=== PATIENT | female | born 1990 | race Caucasian/White ===

== ENCOUNTER 2017-09-27 21:04 | Emergency (ER) | payer SELFPAY, OTHER ==
[2017-09-27] MEDS ORDERED: diphenhydrAMINE 50 MG/ML VIAL ONE (21:58)
[2017-09-27] MEDS ORDERED: Acetaminophen 500 MG TAB ONE (21:58)
--- NOTE | 2017-09-27 22:41 | CT ---
CT OF THE BRAIN WITHOUT CONTRAST 09/27/17 INDICATION: Chronic headaches. COMPARISON: None. FINDINGS: No acute infarct, hemorrhage or hydrocephalus is present. The septum pellucidum and third ventricle are midline. Mastoid air cells and paranasal sinuses are clear. There is dehiscence versus remote fr acture involving the left medial orbital wall. IMPRESSION: 1. No acute intracranial abnormality. 2. 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 POS: [facility]
[2017-09-27] MEDS ORDERED: Lorazepam 2 MG/ML VIAL ONE (23:10)
== END 2017-09-28 01:15 | disposition home or self-care (01) ==
LOC: ERS 21:04
DX: R51 Headache (principal); G43.909 Migraine, unspecified, not intractable, without status migrainosus; F17.210 Nicotine dependence, cigarettes, uncomplicated
CPT/HCPCS: 62270; 70450; 82945; 84157; 87070; 87205; 89051; 96365; 96375; J1200; J2060

== ENCOUNTER 2018-05-08 23:33 | Emergency (ER) | payer SELFPAY ==
[2018-05-09 00:16] LABS: #Eosinphils 0.1 thou/uL (0.0-0.7); #Lymphocytes 2.3 thou/uL (1.20-3.40); #Monocytes 0.6 thou/uL (0.11-0.59); #Neutrophils 3.1 thou/uL (1.40-6.50); %Basophils 0.5 % (0.0-1.0); %Eosinophils 1.9 % (0.0-10.0); %Lymphocytes 37.3 % (21.0-51.0); %Monocytes 9.9 % (0.0-10.0); %Neutrophils 50.4 % (42.0-75.0); Hemoglobin 12.8 g/dL (12.0-16.0); Mean Corpuscular HGB CONC 34.3 g/dL (32.0-36.0); Mean Corpuscular Volume 81.8 fl (81.0-99.0); Mean Platelet Volume 7.7 fL (7.4-10.4); Platelet Count 183 thou/uL (130-400); RBC Distribution Width 13.6 % (11.5-14.5); Red Blood Cell (RBC) Count 4.58 mill/uL (4.20-5.40); White Blood Cell (WBC) Count 6.2 thou/uL (4.8-10.8)
[2018-05-09 00:33] LABS: ALT (SGPT) 12 U/L (8-55); AST (SGOT) 15 U/L (5-34); Albumin 3.9 g/dL (3.5-5.0); Alkaline Phosphatase 63 U/L (40-150); Anion Gap 11 mmol/L (10-20); BUN (Urea Nitrogen) 14 mg/dL (7.0-18.7); Bilirubin, Total 0.4 mg/dL (0.2-1.2); Calc. Creatinine Clearance 0 mL/min (70-130); Carbon Dioxide 23 mmol/L (22-29); Chloride 107 mmol/L (98-107); Estimated GFR-MDRD 90; Globulin 2.7 g/dL (2.4-3.5); Glucose 79 mg/dL (70-105); Potassium 3.7 mmol/L (3.5-5.1); Protein, Total 6.6 g/dL (6.0-8.3); Sodium 137 mmol/L (136-145)
[2018-05-09 02:28] LABS: Pregnancy Test - Urine (BHCG) Negative (Negative); Pregu Control Background? CLEAR/WHITE (CLR/WHITE); Pregu Control Bar Appear? YES (CONTROL BAR)
[2018-05-09 03:38] LABS: BHCG - Serum Negative (NEGATIVE); Pregs Control Background? CLEAR/WHITE (CLR/WHITE); Pregs Control Bar Appear? YES (CONTROL BAR)
== END 2018-05-09 03:01 | disposition home or self-care (01) ==
LOC: ERS 23:33
DX: R20.2 Paresthesia of skin (principal); G43.909 Migraine, unspecified, not intractable, without status migrainosus; F17.210 Nicotine dependence, cigarettes, uncomplicated
CPT/HCPCS: 36415; 36416; 80053; 81025; 84443; 84703; 85025; 96360

== ENCOUNTER 2018-06-10 11:45 | Emergency (ER) | payer SELFPAY | END 2018-06-10 12:25 | disposition left against medical advice (07) | LOC: ERS 11:45 | DX: Z53.21 Procedure and treatment not carried out due to patient leaving prior to being seen by health care provider (principal) ==

== ENCOUNTER 2018-08-08 09:20 | Emergency (ER) | payer SELFPAY ==
[2018-08-08] MEDS ORDERED: Sodium Chloride For Inhalation 0.9% 3 ML NEB ONE (09:47)
[2018-08-08] MEDS ORDERED: Dexamethasone 10 MG/ML VIAL ONE (10:12)
--- NOTE | 2018-08-08 10:14 | RAD ---
PA AND LATERAL VIEWS CHEST: HISTORY: Cough. FINDINGS: The cardiomediastinum is normal. The lungs are expanded and clear. The bony thorax is normal. IMPRESSION: Normal exam. POS: [facility]
== END 2018-08-08 10:33 | disposition home or self-care (01) ==
LOC: SCSER 09:20
DX: J06.9 Acute upper respiratory infection, unspecified (principal); E05.90 Thyrotoxicosis, unspecified without thyrotoxic crisis or storm; F17.210 Nicotine dependence, cigarettes, uncomplicated
CPT/HCPCS: 71046; 94640; J1100; J7620

== ENCOUNTER 2019-11-10 11:59 | Inpatient (IN) | payer SELFPAY ==
[~2019-11-10 11:59] MED LIST: Iopamidol-370 76% 500 ML 1 ML ONE
[2019-11-10 12:21] LABS: #Basophils 0.1 thou/uL (0.0-0.2); #Lymphocytes 2.1 thou/uL (1.20-3.40); #Monocytes 0.5 thou/uL (0.11-0.59); #Neutrophils 2.4 thou/uL (1.40-6.50); %Eosinophils 0.9 % (0.0-10.0); %Lymphocytes 40.8 % (21.0-51.0); %Monocytes 9.6 % (0.0-10.0); %Neutrophils 47.7 % (42.0-75.0); Hemoglobin 14.4 g/dL (12.0-16.0); Mean Corpuscular HGB CONC 34.4 g/dL (32.0-36.0); Mean Corpuscular Volume 81.4 fL (78.0-98.0); Mean Platelet Volume 7.5 fL (7.4-10.4); Platelet Count 232 thou/uL (130-400); RBC Distribution Width 12.6 % (11.5-14.5); Red Blood Cell (RBC) Count 5.13 mill/uL (4.20-5.40)
[2019-11-10 12:23] LABS: Prothrombin Time 13.3 SEC (12.0-14.7)
[2019-11-10 12:24] LABS: PTT 31.8 SEC (22.9-36.1)
--- NOTE | 2019-11-10 12:28 | CT ---
EXAM: Brain CTWithout contrast: HISTORY: Stroke, right-sided facial droop, slurred speech, right arm weakness COMPARISON: 09/27/2017 FINDINGS: No focal mass or midline shift. No intra or extra-axial hemorrhage. Sinuses and mastoids are clear of acute process. IMPRESSION: No mass or bleed or other significant acute intracranial process. Stable exam. Findings discussed with Dr. Ferrell in the emergency room at 12:23 PM CODE CR
--- NOTE | 2019-11-10 12:51 | CT ---
EXAM: CT angiogram of the head including 3-D rendering: HISTORY: Stroke, facial droop, right arm weakness COMPARISON: None FINDINGS: There is adequate opacification of the intracranial arteries. Visualized vertebral and basilar arteries: Unremarkable. Right and left intracranial internal carotid arteries: Unremarkable. Right and left Anterior and posterior cerebral arteries: Unremarkable. Right and left middle cerebral arteries: Unremarkable. No evidence for an M1 segment occlusion. No evidence for intracranial aneurysm. IMPRESSION: No significant major branch occlusion or stenosis. No evidence for intracranial aneurysm. EXAM: CT angiogram of the neck including 3-D rendering: HISTORY: Facial droop arm weakness stroke protocol COMPARISON: None FINDINGS: There is adequate opacification of the extracranial arterial tree. The origins of the right and left carotid and vertebral arteries demonstrate no significant stenosis. Right common, internal, and external carotid arteries:No evidence for significant stenosis or occlusi ve disease. Left common, internal, and external carotid arteries:No significant stenosis or occlusive disease. Right and left vertebral arteries and basilar artery:No significant stenosis or occlusion. Soft tissue neck demonstrates no evidence for significant adenopathy, mass, or abnormal fluid collect ion. IMPRESSION: No significant carotid, vertebral, or basilar artery stenosis or occlusive disease or other significa nt acute process. Unremarkable CTA neck and head. No major branch occlusion. Findings discussed with Dr. Ferrell in the emergency room at 12:45 PM CODE CR
[2019-11-10 13:16] LABS: ALT (SGPT) 12 U/L (8-55); AST (SGOT) 16 U/L (5-34); Albumin 4.4 g/dL (3.5-5.0); Alkaline Phosphatase 68 U/L (40-110); Anion Gap 14 mmol/L (10-20); BUN (Urea Nitrogen) 13 mg/dL (7.0-18.7); Bilirubin, Total 0.6 mg/dL (0.2-1.2); CK (CPK) 82 U/L (29-168); Calc. Creatinine Clearance 0 mL/min (70-130); Calcium 9.3 mg/dL (7.8-10.44); Carbon Dioxide 22 mmol/L (22-29); Chloride 107 mmol/L (98-107); Estimated GFR-MDRD 82; Glucose 100 mg/dL (70-105); Potassium 4.1 mmol/L (3.5-5.1); Protein, Total 7.4 g/dL (6.0-8.3); Sodium 139 mmol/L (136-145)
[2019-11-10 13:57] LABS: BHCG - Serum Negative (NEGATIVE); Pregs Control Background? CLEAR/WHITE (CLR/WHITE); Pregs Control Bar Appear? YES (CONTROL BAR)
[2019-11-10] MEDS ORDERED: hydrALAZINE 20 MG/ML VIAL SLOW IVP PRN (16:59)
[2019-11-10] MEDS ORDERED: niCARdipine 25 MG in Sodium Chloride 0.9% 250 ML 240 ML IVPB PRN (16:59)
[2019-11-10] MEDS ORDERED: Communication Order-Pharmacy FS SCH (16:59)
[2019-11-10] MEDS ORDERED: Labetalol HCl 100 MG/20 ML VIAL SLOW IVP PRN (16:59)
[2019-11-10] MEDS ORDERED: CCU Electrolyte Replacement 1 EACH IVPB ONE (16:59)
[2019-11-10] MEDS ORDERED: Acetaminophen 650 MG/20.3 ML UDCUP PO PRN (16:59)
[2019-11-10] MEDS ORDERED: CCU ELECTROLYTE REPLACEMENT PROTOCOL FS PRN (17:12)
[2019-11-10] MEDS ORDERED: Potassium Phosphate 15 MMOL in Sodium Chloride 0.9% 250 ML 250 ML IV PRN (17:12)
[2019-11-10] MEDS ORDERED: Magnesium 2 GM/50 ML 2 GM in Premix Bag 1 BAG IVPB PRN (17:12)
[2019-11-10] MEDS ORDERED: Potassium Chloride 40 MEQ in Sodium Chloride 0.9% 250 ML 250 ML IVPB PRN (17:12)
[2019-11-10] MEDS ORDERED: PHOS-NAK 1 PKT PACK PO PRN ×2 (17:12)
[2019-11-10] MEDS ORDERED: Magnesium Oxide 400 MG TAB PO PRN ×2 (17:12)
[2019-11-10] MEDS ORDERED: Potassium Chloride 40 MEQ in Premix Bag 1 BAG IVPB PRN (17:12)
[2019-11-10] MEDS ORDERED: Potassium Phosphate 9 MMOL in Sodium Chloride 0.9% 100 ML IVPB PRN (17:12)
[2019-11-10] MEDS ORDERED: Potassium Phosphate 12 MMOL in Sodium Chloride 0.9% 250 ML 250 ML IV PRN (17:12)
[2019-11-10] MEDS ORDERED: Potassium Chloride 20 MEQ TAB PO PRN (17:12)
[2019-11-10 17:14] VITALS: BMI 24.7
--- NOTE | 2019-11-10 20:38 | HP ---
CHIEF COMPLAINT: Headache and slurred speech. HISTORY OF PRESENT ILLNESS: The patient is a very pleasant 29-year-old female with really no past medical history, she has had a history of migraines in the past, who presents to the hospital with complaints of some slurred speech and some tingling in her hand and her right face. The patient stated that her symptoms started on Monday when she started having a migraine headache and had some slurred speech, however, went away. This has happened to her in the past. She initially was diagnosed with migraine; however, her last migraine was back in 2017. She was on Imitrex for brief period, however, she has been off it. However, the patient stated that she went to work today and started having more slurred speech and also could not move her right face and started having tingling in her right hand and her right face, and numbness. At this time, she was brought into the ER for further evaluation. She had numbness from the earlobe to her face and all the way to her fingers. She states that she has been stressed out with personal life and at work. The patient states that also she has had sustained a mechanical trauma in the past when she tried to get up into a cabinet and hit the exhaust zepeda at her house and that actually caused her to pass out. This was a few years ago. The patient has normal migraines. She is very sensitive to light, sound. She gets blurry vision and at times, she has passed out. As I mentioned, she has not had migraine headaches since 2017. PAST MEDICAL HISTORY: She has occasional migraines. PAST SURGICAL HISTORY: Denies. FAMILY HISTORY: Grandmother had thyroid. Mother has hypertension, mini stroke, some thyroid. ALLERGIES: SHE IS ALLERGIC TO PREDNISONE, SHE GETS VOMITING. . REGLAN; SHE GETS TACHYCARDIC, ANXIETY, AND NAUSEA. MEDICATIONS: She takes none. REVIEW OF SYSTEMS: All negative except for the ones mentioned above in the HPI. PHYSICAL EXAMINATION: VITAL SIGNS: Temperature 98.7, pulse 100, blood pressure 115/82, respirations 19, 100% on room air. GENERAL: She is awake, alert, and oriented x3. Does not appear in distress. HEENT: Normocephalic, atraumatic. No lymphadenopathy noted. Pupils equal reactive to light. CV: S1 and S2 present. No murmurs, rubs, or gallops. LUNGS: Clear to auscultation. No rhonchi or wheezes noted. ABDOMEN: Soft and nontender. Bowel sounds present x2. EXTREMITIES: No edema. Pedal pulses present x2. NEUROVASCULAR: No focal deficits noted. 5/5 in bilateral upper extremity and bilateral lower extremity. Sensation is intact. She has no more tingling and numbness. SKIN: No cuts, lesions, or bruises noted. LABORATORY RESULTS: WBCs of 5.0, hemoglobin 14.4, hematocrit of 41.7. Chemistry; sodium 139, potassium 4.1, BUN of 13, creatinine 0.82. Her troponin x1 is negative. Her serum test is negative. She did have a CTA and a brain CT. Her CTA indicated no significant major branch occlusion stenosis, it was normal. ASSESSMENT AND PLAN: The patient is a very pleasant 29-year-old female who presents to the hospital with slurred speech and right-sided weakness. 1. Right-sided numbness and tingling and slurred speech, possible stroke versus complex migraine headaches. The patient received tPA. She is currently in the ICU. We will monitor her. We will also do a full stroke workup including an echo and MRI and Neurology consult. We will hold off on any aspirin for 24 hours, so she has been started on a tPA protocol. I will start her on a regular diet. 2. History of migraines. As I mentioned, she has not had migraines since 2017. Again, we will get Neurology to evaluate her. 3. Deep vein thrombosis prophylaxis. We will put the patient on SCDs. Heparin or Lovenox is contraindication right now due to her status post tPA. Job ID: [id number]
[2019-11-11] MEDS ORDERED: FLU VACC QS2019-20(6MOS UP)/PF 60 MCG/0.5 ML SYRINGE IM ONE (09:00)
[2019-11-11 09:39] VITALS: TEMP 98.2
--- NOTE | 2019-11-11 15:12 | CON ---
DATE OF CONSULTATION: HISTORY OF PRESENT ILLNESS: Ms. Burks is a pleasant woman, who is 29-year-old. She has long history of migraine headaches. She has seen a neurologist in town, but it was many years ago. She has actually lost vision in her right eye with these headaches she says. She was on Imitrex for a while. When she could not afford the Imitrex, she was placed on Midrin. She apparently had a headache, which she thought was a simple headache that progressed to a feeling like one of her typical migraines. She took a nap and woke up and had slurred speech. She had numbness in the right upper extremity. She was brought to the emergency room. She had a CT angiogram done in the ER showing no evidence of thrombotic disease. She was given tPA. ALLERGIES: SHE REPORTS REGLAN AND PREDNISONE INTOLERANCE. MEDICATIONS: She is on no medications prior to admission. FAMILY HISTORY: Family history is positive for hypertension and vascular disease as well as thyroid problems. REVIEW OF SYSTEMS: Ten-points otherwise negative. She says she feels like she is back to normal. PHYSICAL EXAMINATION: VITAL SIGNS: Heart rate 64, blood pressure 114/63, respiratory rate is 18, and oximetry is 98. HEENT: Pupils are equal. Sclerae are anicteric. Extraocular movements are full. NECK: Supple. No lymphadenopathy. LUNGS: Clear. HEART: Regular rhythm. S1 and S2 normal. ABDOMEN: Soft and nontender. EXTREMITIES: Without clubbing, cyanosis, or edema. NEURO: Grossly nonfocal. LABORATORY DATA: White count is 5.0, hemoglobin 14.4, and platelets 232. Electrolytes are normal. IMPRESSION AND PLAN: Atypical migraine. Would be reasonable to send her home with a prescription for Midrin or Imitrex in my opinion. Job ID: [id number]
[2019-11-11 16:10] LABS: Mean Corpuscular HGB CONC 33.5 g/dL (32.0-36.0); Mean Corpuscular Hemoglobin 27.8 pg (27.0-31.0); Mean Corpuscular Volume 82.9 fL (78.0-98.0); Platelet Count 212 thou/uL (130-400); RBC Distribution Width 12.6 % (11.5-14.5); Red Blood Cell (RBC) Count 4.68 mill/uL (4.20-5.40); White Blood Cell (WBC) Count 5.4 thou/uL (4.8-10.8)
[2019-11-11 16:25] LABS: Anion Gap 13 mmol/L (10-20); BUN (Urea Nitrogen) 11 mg/dL (7.0-18.7); Calc. Creatinine Clearance 135 mL/min (70-130); Calcium 8.9 mg/dL (7.8-10.44); Carbon Dioxide 22 mmol/L (22-29); Chloride 110 mmol/L (98-107); Estimated GFR-MDRD Greater than 90; Glucose 90 mg/dL (70-105); Potassium 4.2 mmol/L (3.5-5.1); Sodium 141 mmol/L (136-145)
[2019-11-11 16:27] LABS: Cardiac Risk 2.1 (Less than 4.5)
[2019-11-11 16:46] LABS: Band 2 % (5-11); Lymphocytes 37 % (21-51); MDiff Complete? YES; Monocytes 17 % (0-10); Neutrophil 41 % (42-75); Platelet Morphology Comment Appears Adequate; RBC Morphology Normal; Reactive Lymphocytes 2 % (0-10)
--- NOTE | 2019-11-11 17:02 | CT ---
CT BRAIN WITHOUT CONTRAST: HISTORY: Stroke, facial droop, right arm weakness, status post TPA FINDINGS: No evidence of acute infarct, hemorrhage, midline shift or abnormal extra-axial fluid collections is seen. The ventricular size is appropriate and the basilar cisterns are patent. The bony calvarium is intact. The visualized paranasal sinuses and mastoid air cells are well aerated. No interval glover e is seen since the previous day's exam. IMPRESSION: No CT evidence of acute intracranial process.
--- NOTE | 2019-11-12 12:56 | DIS ---
DATE OF ADMISSION: 11/10/2019 DATE OF DISCHARGE: 11/11/2019 DISCHARGE DIAGNOSES: 1. Complicated migraine headache. 2. Visual disturbance secondary to #1, resolved. CONSULTATIONS: 1. Dr. Villagran with Neurology Service. 2. Dr. Silva with Pulmonology and Critical Care Service. PERTINENT LABORATORY AND X-RAY FINDINGS: Complete metabolic profile within normal limits. Serum beta-hCG negative. CBC within normal limits. CT of the brain without contrast dated 11/10/2019 showed no acute intracranial process. CT angiogram of the [place] showed no acute or focal stenosis. HOSPITAL COURSE: The patient was initially admitted to the Critical Care Unit after presenting with right visual deficit in conjunction with right hemiparesis and dysarthria concerning for a TIA versus CVA. Initial CT imaging of the brain including angiography showed no focal stenosis or acute process. The patient was deemed an appropriate candidate and underwent tPA administration in the emergency room. The patient was monitored appropriately in the critical care unit for approximately 24 hours with complete resolution of her deficit. The patient was evaluated by the Neurology Service with a diagnosis of complicated migraine and not an acute CVA or TIA. Recommendations are to initiate Imitrex on an as needed basis after discharge. Screening metabolic survey was unremarkable and telemetry monitoring showed no evidence of acute arrhythmia or dysrhythmia. The patient overall clinically stable. I have examined the patient at the time of discharge and discussed followup instructions. The patient verbalized understanding and agreement, ready for discharge on 11/11/2019. DISCHARGE MEDICATIONS: Imitrex 50 mg p.o. q.2 hours p.r.n. migraine headache. FOLLOWUP: The patient may follow up with Dr. Jose Villagran with Neurology Service within the next 1 to 2 weeks. CONDITION ON DISCHARGE: Stable. ACTIVITY: Ad-hema. DIET: Regular. CODE STATUS: Full. DISPOSITION: To home, 11/11/2019. Job ID: [id number]
== END 2019-11-11 17:21 | disposition home or self-care (01) | DRG 103 ==
LOC: ERS 11:59 → CCU 14:30
PROVIDERS: ADMIT Internal Medicine; ATTEND Internal Medicine
DX: G43.809 Other migraine, not intractable, without status migrainosus (principal); Z88.8 Allergy status to other drugs, medicaments and biological substances
CPT/HCPCS: 36415; 36416; 70450; 70496; 70498; 80048; 80053; 80061; 82550; 84484; 84703; 85025; 85610; 85730; 93005; 93306; 96374; J2997; Q9967

== ENCOUNTER 2020-02-21 19:56 | Emergency (ER) | payer OTHER, SELFPAY ==
[2020-02-21] MEDS ORDERED: Dexamethasone 4 mg/ml Vial ONE (21:15)
== END 2020-02-21 21:33 | disposition home or self-care (01) ==
LOC: ERS 19:56
DX: J02.8 Acute pharyngitis due to other specified organisms (principal); E05.90 Thyrotoxicosis, unspecified without thyrotoxic crisis or storm; F17.210 Nicotine dependence, cigarettes, uncomplicated
CPT/HCPCS: 87081; 87430; 99283; J1100

== ENCOUNTER 2021-06-02 21:21 | Emergency (ER) | payer SELFPAY | END 2021-06-02 22:18 | disposition home or self-care (01) | LOC: ERS 21:21 | DX: L02.11 Cutaneous abscess of neck (principal); L03.221 Cellulitis of neck; E03.9 Hypothyroidism, unspecified; F17.210 Nicotine dependence, cigarettes, uncomplicated | CPT/HCPCS: 99283 ==

== ENCOUNTER 2022-09-22 17:24 | Emergency (ER) | payer SELFPAY ==
[2022-09-22 17:49] LABS: #Eosinphils 0.3 thou/uL (0.0-0.7); #Monocytes 0.7 thou/uL (0.11-0.59); #Neutrophils 5.1 thou/uL (1.40-6.50); %Basophils 0.6 % (0.0-1.0); %Eosinophils 3.5 % (0.0-10.0); %Lymphocytes 24.4 % (21.0-51.0); %Neutrophils 62.5 % (42.0-75.0); Hemoglobin 13.2 g/dL (12.0-16.0); Mean Corpuscular HGB CONC 33.5 g/dL (32.0-36.0); Mean Corpuscular Hemoglobin 27.4 pg (27.0-31.0); Mean Corpuscular Volume 81.8 fl (78.0-98.0); Mean Platelet Volume 7.3 fL (7.4-10.4); Platelet Count 347 thou/uL (130-400); RBC Distribution Width 12.9 % (11.5-14.5); Red Blood Cell (RBC) Count 4.81 mill/uL (4.20-5.40); White Blood Cell (WBC) Count 8.1 thou/uL (4.8-10.8)
[2022-09-22 18:44] LABS: ALT (SGPT) 12 U/L (8-55); AST (SGOT) 15 U/L (5-34); Alkaline Phosphatase 95 U/L (40-110); Anion Gap 13 mmol/L (10-20); BUN (Urea Nitrogen) 10 mg/dL (7.0-18.7); Bilirubin, Total 0.2 mg/dL (0.2-1.2); Calc. Creatinine Clearance 0 mL/min (70-130); Calcium 9.4 mg/dL (7.8-10.44); Carbon Dioxide 26 mmol/L (22-29); Chloride 104 mmol/L (98-107); Estimated GFR 106; Globulin 3.5 g/dL (2.4-3.5); Glucose 100 mg/dL (70-105); Potassium 3.8 mmol/L (3.5-5.1); Protein, Total 7.5 g/dL (6.0-8.3); Sodium 139 mmol/L (136-145)
== END 2022-09-22 20:33 | disposition left against medical advice (07) ==
LOC: ERS 17:24
DX: Z53.21 Procedure and treatment not carried out due to patient leaving prior to being seen by health care provider (principal)
CPT/HCPCS: 36415; 71045; 80053; 85025

== ENCOUNTER 2023-01-13 19:22 | Emergency (ER) | payer SELFPAY ==
[2023-01-13] MEDS ORDERED: Dexameth. Sod Phosp. 10 MG/ML (CHEMO USE ONLY) ONE (20:03)
== END 2023-01-13 20:15 | disposition home or self-care (01) ==
LOC: ERS 19:22
DX: H60.502 Unspecified acute noninfective otitis externa, left ear (principal)
CPT/HCPCS: 96372; 99282; J1100